=== PATIENT | male | born 1990 | race Caucasian/White ===

== ENCOUNTER 2023-04-09 14:33 | Emergency (ER) | payer MEDICAID ==
[~2023-04-09] VITALS: Ht 188 cm; Wt 140.0 kg
[~2023-04-09 14:33] MED LIST: CALC-793 PO; CLON-527 PO; DOCU-28 PO; IBUP-1984 PO; QUET-1 PO; QUET25TA PO
[2023-04-09] MEDS ORDERED: LIDOcaine 1% W/epiNEPHrine 1:100,000 20ml vial SQ ONE (17:10)
[2023-04-09] MEDS ORDERED: LIDOCAINE 1%/EPI 1:100,000 inj. 10 ML multi-dose vial SQ ONE ×2 (17:20→17:25)
[2023-04-09] MEDS ORDERED: LIDOcaine 1% W/epiNEPHrine 1:200,000 10ml vial SQ ONE (17:20)
[2023-04-09 17:56] VITALS: BP 130/83; PULSE 93; RESP 16; TEMP 98; O2SAT 96
== END 2023-04-09 17:59 | disposition home or self-care (01) ==
LOC: ER 14:33
DX: S61.511A Laceration without foreign body of right wrist, initial encounter (principal); X58.XXXA Exposure to other specified factors, initial encounter; Y93.89 Activity, other specified; Y92.89 Other specified places as the place of occurrence of the external cause; Y99.8 Other external cause status
CPT/HCPCS: 12002; 99284; J7030; A6449